=== PATIENT | male | born 1980 | race Caucasian/White ===

== ENCOUNTER → 2018-09-29 | Outpatient (CLI) | payer OTHER | END | disposition home or self-care (01) | LOC: CVU 12:28 | PROVIDERS: ATTEND Surgery | DX: I83.812 Varicose veins of left lower extremity with pain (principal) | CPT/HCPCS: 93971 ==

== ENCOUNTER → 2019-01-10 | Outpatient (CLI) | payer OTHER ==
[~2019-01-10] MED LIST: FLUT9.9S NS; HYOS0.1282 PO; METF500T17 PO; MONT10TA6 PO; TEST100V2 IM
[2019-01-10 11:56] LABS: CHLORIDE 106 mmol/L (98-107)
[2019-01-10 12:22] LABS: ALANINE AMINOTRANSFERASE 45 U/L (12-78); ALBUMIN 4.4 g/dL (3.4-5.0); ALKALINE PHOSPHATASE 68 U/L (45-117); ANION GAP 8 mmol/L (5-15); BILIRUBIN,TOTAL 1.4 mg/dL (0.2-1.0); CALCIUM 9.4 mg/dL (8.5-10.1); CREATININE 0.98 mg/dL (0.7-1.3); TOTAL PROTEIN 7.8 g/dL (6.4-8.2)
== END | disposition home or self-care (01) ==
LOC: STAR 10:41
PROVIDERS: ATTEND Surgery
DX: Z01.818 Encounter for other preprocedural examination (principal); I83.92 Asymptomatic varicose veins of left lower extremity
CPT/HCPCS: 36415; 80053; 93005

== ENCOUNTER 2019-01-15 13:04 | Day surgery (SDC) | payer OTHER ==
[~2019-01-15] VITALS: Ht 180.3 cm; Wt 100.0 kg
[2019-01-15] MEDS ORDERED: LACTATED RINGERS 1,000 ML IV SCH ×2 (13:29→18:30)
[2019-01-15 13:39] VITALS: BP 137/83
[2019-01-15] MEDS ORDERED: FENTANYL PF 250 MCG/5ML ONE (15:27)
[2019-01-15] MEDS ORDERED: MIDAZOLAM 1 MG/ML, 2ML ONE (15:27)
[2019-01-15] MEDS ORDERED: DEXAMETHASONE 4 MG/ML, 1ML ONE (15:45)
[2019-01-15] MEDS ORDERED: CLINDAMYCIN 150 MG/ML, 6ML ONE (16:00)
[2019-01-15] MEDS ORDERED: ONDANSETRON ODT 8 MG PO PRN (16:30)
[2019-01-15] MEDS ORDERED: MEPERIDINE/PF 25MG/0.5ML IVPush PRN (16:30)
[2019-01-15] MEDS ORDERED: OXYcodone 5 MG/5 ML ORAL.SOL UDC PO PRN (16:30)
[2019-01-15] MEDS ORDERED: ONDANSETRON 2MG/ML, 2ML IV PRN (16:30)
[2019-01-15] MEDS ORDERED: PROMETHAZINE 25 MG/ML, 1ML IV PRN (16:30)
[2019-01-15] MEDS ORDERED: HYDROmorphone 2 MG/ML, 1ML IVPush PRN (16:30)
[2019-01-15] MEDS ORDERED: ACETAMINOPHEN 325 MG TABLET PO PRN (16:30)
[2019-01-15] MEDS ORDERED: DIAZEPAM 5 MG/ML, 2ML IVPush PRN (16:30)
[2019-01-15] MEDS ORDERED: CEFAZOLIN 1,000 MG ONE (16:36)
[2019-01-15] MEDS ORDERED: PROPOFOL 10 MG/ML, 20ML ONE (16:36)
[2019-01-15] MEDS ORDERED: ONDANSETRON 2MG/ML, 2ML ONE (16:36)
[2019-01-15] MEDS ORDERED: ACETAMINOPHEN 650 MG/20.3 ML UDC ONE (17:06)
[2019-01-15] MEDS ORDERED: OXYcodone 5 MG/5 ML ORAL.SOL UDC ONE (17:06)
[2019-01-15] MEDS ORDERED: FENTANYL PF 100 MCG/2ML ONE (17:09)
[2019-01-15] MEDS: FENTANYL PF 100 MCG/2ML IV PRN ×2 (17:11→17:19)
[2019-01-15] MEDS ORDERED: DIPHENHYDRAMINE 50 MG/ML, 1ML IVPush PRN (18:30)
[2019-01-15] MEDS ORDERED: IBUPROFEN 600 MG TABLET PO PRN (18:30)
[2019-01-15] MEDS ORDERED: MORPHINE SULFATE 4 MG/ML, 1ML IVPush PRN (18:30)
[2019-01-15] MEDS ORDERED: [UNRECOGNIZED DRUG - REMARK] MC SCH (18:30)
[2019-01-15] MEDS ORDERED: HYDROcodone/APAP 5/325 TABLET PO PRN (18:30)
[2019-01-15] MEDS ORDERED: ONDANSETRON 2MG/ML, 2ML IVPush PRN (18:30)
[2019-01-15] MEDS ORDERED: MONTELUKAST 10 MG TABLET PO SCH (21:00)
[2019-01-16] MEDS ORDERED: metFORMIN 500 MG TABLET PO SCH (08:00)
[2019-01-16] MEDS ORDERED: FLUTICASONE NASAL SPRAY 16GM NAS SCH (09:00)
== END 2019-01-15 20:05 | disposition home or self-care (01) ==
LOC: OUT 13:04 → 4NOR 18:06 → OUT 20:05
PROVIDERS: ATTEND Surgery
DX: I83.812 Varicose veins of left lower extremity with pain (principal); E11.9 Type 2 diabetes mellitus without complications; Z72.89 Other problems related to lifestyle; Z88.8 Allergy status to other drugs, medicaments and biological substances; Z79.84 Long term (current) use of oral hypoglycemic drugs
CPT/HCPCS: 37765; 82962; J0690; J1100; J2250; J2405; J2704; J3010; J7120; G0378